=== PATIENT | female | born 1980 | race Caucasian/White ===

== ENCOUNTER 2023-11-15 03:43 | Emergency (ER) | payer OTHER, SELFPAY ==
[2023-11-15] VITALS (18 sets, daily range): BP systolic 125–154; BP diastolic 59–103; BMI 27.6
[2023-11-15 04:11] LABS: % Basophils 0.8 % (0-2); % Eosinophils 3.1 % (0-6); % Immature Granulocytes 0.4 % (0-0.5); % Lymphocytes 35.8 % (20.5-51.1); % Monocytes 6.2 % (1.7-9.3); % Neutrophils 53.7 % (42.2-75.2); Absolute Basophils 0.1 10^3/uL (0-0.2); Absolute Eosinophils 0.3 10^3/uL (0-0.7); Absolute Lymphocytes 3.8 10^3/uL (1.2-3.4); Absolute Monocytes 0.7 10^3/uL (0.1-0.6); Absolute Neutrophils 5.7 10^3/uL (1.4-6.5); Hemoglobin 15.4 g/dL (12.0-16.0); Mean Corpuscular Hgb 33.2 pg (27.0-31.0); Mean Corpuscular Volume 94.8 fL (81.0-99.0); Nucleated Red Blood Cells % 0 %; Platelet Count 315 10^3/uL (130-400); Red Blood Cell Count 4.64 10^6/uL (4.20-5.40); Red Cell Dist. Width 11.7 % (11.5-14.5); White Blood Cell Count 10.6 10^3/uL (4.8-10.8)
--- NOTE | 2023-11-15 04:19 | ED.GENMED ---
History of Present Illness
<OLINDA Mcbride - Last Filed: 11/15/23 04:26>
General
Chief Complaint: Heart Rate Problem
Source: patient
Exam Limitations: none
Time Seen by Provider: 11/15/23 04:07
Nursing documentation reviewed up to this point in time: agreed with
Travel History
Have you had any contact with someone who has COVID-19?: No
Do you have any symptoms of coronavirus? Fever > 100 degrees, chills, cough, shortness of breath, sore throat, loss of taste or smell, muscle aches, or headache?: No
History of Present Illness
History of Present Illness:
patient is a 43 y/o female with PMH of HTN and anxiety presenting for irregular HR since 9pm. Patient admits that it started about 3o minutes after taking her amlodipine. Patient admits that it will wax and wane episodically. Patient admits that
nothing brings on worse episodes. Patient admits to palpitations. Patient denies any previous episodes. Patient denies SOB, CP, VÁZQUEZ, calf pain, dizziness, wheezing. Patient admits to smoking a pack a day and in taking alcohol last night. Patient
states her amlodipine is a new medication and has only taken 4 doses of it.
Past History
<OLINDA Mcbride - Last Filed: 11/15/23 04:26>
Past History
ED Past Medical History: Asthma and Other (Hemorrhoids)
ED Past Surgical History: None and Other (Oral Surgery)
Social History
Tobacco: Smoker
Alcohol: Occasional
Drug: None
Personal:
Living: with family
Employment: Employed
Family History
Family History: Hypertension and Other (Noncontributory)
Review of Systems
<OLINDA Mcbride - Last Filed: 11/15/23 04:26>
Review of Systems
All Other Systems: Not applicable
Constitutional: Reports no symptoms
EENT: Reports no symptoms
Respiratory: Reports no symptoms
Cardiac: Reports palpitations and other (abnormal HR )
ABD/GI: Reports no symptoms
: Reports no symptoms
Musculoskeletal: Reports no symptoms
Skin: Reports no symptoms
Neurological: Reports no symptoms
Endocrine: Reports no symptoms
Hematologic/Lymphatic: Reports no symptoms
Psychiatric: Reports no symptoms
Phy Exam
<OLINDA Mcbride - Last Filed: 11/15/23 04:26>
General Physical Exam
General Presentation: mild distress
General Skin: warm and dry
General Habitus: normal
General Mental: anxious
General Hydration: appears well hydrated
ENT Exam
ENT Exam: EOMI, pharynx normal, neck supple and normocephalic
Eye Exam
Eye Exam: PERRL, cornea clear and conjunctiva normal
Cardiovascular Exam
Cardiovascular Exam: irregularly irregular and tachycardia
Pulmonary Exam
Pulmonary Exam: lungs clear, no respiratory distress, no rales, no crackles, no rhonchi, no stridor, no wheezing and no cough
Gastrointestinal Exam
Gastrointestinal Exam: normal bowel sounds, non tender, soft, no organomegaly, no pulsatile mass and non distended
Neurological Exam
Neurological Exam: alert, oriented x3, no motor deficits and speech normal
Musculoskeletal Exam
Musculoskeletal Exam: full ROM and no edema
Skin Exam
Skin Exam: normal color, warm/dry, no rash and no petechia
Psychiatric Exam
Psychiatric Exam: normal mood/affect
Course
<OLINDA Mcbride - Last Filed: 11/15/23 04:26>
Orders/Labs/Results
Orders:
Orders
11/15/23 03:44
Electrocardiogram (*1) Urgent
Reason for Study: Atrial Fibrillation
EKG- Treatment ONCE
11/15/23 04:06
Complete Blood Count/With Diff Urgent
Comprehensive Metabolic Panel Urgent
TSH Reflex To Free T4 Urgent
Comment: ADD ON
Troponin I Urgent
11/15/23 04:27
Diltiazem HCl [Cardizem] 20 mg IV NOW STA
11/15/23 05:00
Diltiazem 125 mg/125 ml Nss [Cardizem] 125 mg in 125 ml IV PER PROTOCOL
Initial dose in mg/hr, then titrate:: 5
Titrate to keep:: Heart rate 80-100 bpm
Titrate by mg/hr:: 5 mg/hr
Frequency of titrations (minutes):: 15
Maximum dose in mg/hr:: 15
11/15/23 06:06
Add On- LAB Urgent
Tests Added?: TSH reflex to T4
Abnormal Lab Results
11/15/23
04:06
MCH 33.2 H pg
(27.0-31.0)
Absolute Lymphs (auto) 3.8 H 10^3/uL
(1.2-3.4)
Absolute Monos (auto) 0.7 H 10^3/uL
(0.1-0.6)
11/15/23 04:06
11/15/23 04:06
Vital Signs
Initial and Last Documented VS:
Initial Vital Signs
Temp Pulse Resp BP Pulse Ox
98.1 F 126 20 128/88 100
11/15/23 03:51 11/15/23 03:51 11/15/23 03:51 11/15/23 03:51 11/15/23 03:51
Last Documented Vital Signs
Temp Pulse Resp BP Pulse Ox
98.1 F 130 20 154/91 100
11/15/23 03:51 11/15/23 04:37 11/15/23 03:51 11/15/23 04:37 11/15/23 03:51
<Candido Cullen, DO - Last Filed: 11/15/23 06:12>
Orders/Labs/Results
Orders:
Orders
11/15/23 03:44
Electrocardiogram (*1) Urgent
Reason for Study: Atrial Fibrillation
EKG- Treatment ONCE
11/15/23 04:06
Complete Blood Count/With Diff Urgent
Comprehensive Metabolic Panel Urgent
TSH Reflex To Free T4 Urgent
Comment: ADD ON
Troponin I Urgent
11/15/23 04:27
Diltiazem HCl [Cardizem] 20 mg IV NOW STA
11/15/23 05:00
Diltiazem 125 mg/125 ml Nss [Cardizem] 125 mg in 125 ml IV PER PROTOCOL
Initial dose in mg/hr, then titrate:: 5
Titrate to keep:: Heart rate 80-100 bpm
Titrate by mg/hr:: 5 mg/hr
Frequency of titrations (minutes):: 15
Maximum dose in mg/hr:: 15
11/15/23 06:06
Add On- LAB Urgent
Tests Added?: TSH reflex to T4
Abnormal Lab Results
11/15/23
04:06
MCH 33.2 H pg
(27.0-31.0)
Absolute Lymphs (auto) 3.8 H 10^3/uL
(1.2-3.4)
Absolute Monos (auto) 0.7 H 10^3/uL
(0.1-0.6)
11/15/23 04:06
11/15/23 04:06
Vital Signs
Initial and Last Documented VS:
Initial Vital Signs
Temp Pulse Resp BP Pulse Ox
98.1 F 126 20 128/88 100
11/15/23 03:51 11/15/23 03:51 11/15/23 03:51 11/15/23 03:51 11/15/23 03:51
Last Documented Vital Signs
Temp Pulse Resp BP Pulse Ox
98.1 F 130 20 154/91 100
11/15/23 03:51 11/15/23 04:37 11/15/23 03:51 11/15/23 04:37 11/15/23 03:51
<OLINDA Mcbride - Last Filed: 11/15/23 04:26>
MDM/Problems Addressed
Differential Diagnosis Includes:
atrial fibrillation
MT
anxiety attack
dysrhythmia
MDM/Problems Addressed:
irregular HR
<OLNIDA Mcbride - Last Filed: 11/15/23 04:26>
*Critical Care Note
Total Time (30-74mins, 75-104mins- exclusive of procedures): Not Applicable
ED Attending Note
<OLINDA Mcbride - Last Filed: 11/15/23 04:26>
-
Portions of this chart may have been created with voice recognition software.� Occasional wrong word or��sound alike� substitutions may have occurred due to the inherent limitations of voice recognition software.
<Candido Cullen DO - Last Filed: 11/15/23 06:12>
ED Attending Note
Patient seen and examined by attending physician: Yes
I performed the substantive portion of visit, reviewed & personally made and approve the management plan that is documented in note by myself or NOVA.: Yes
ED Attending Note:
43-year-old female who presents with irregular heartbeat that began around 9 PM. She states that she has been unable to sleep with her palpitations. She does not have a history of atrial fibrillation. 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
a nonprofit and has been under a lot of stress lately. She does consume coffee. Denies any drinks or other stimulants. She is a smoker, about a pack per day for several years. Denies any other cardiac history. Patient was recently started on
Norvasc. Patient was seen in conjunction with the PA student. I have reviewed and agree with the history and treatment plan presented. On my independent physical exam, patient is awake, alert, and oriented x3, minimal acute distress. Heart is
irregularly irregular. Abdomen soft and nontender. Patient is in no respiratory distress.
Discharge Plan
Departure
Prescriptions:
No Action
escitalopram oxalate 10 MG tablet
10 mg PO DAILY
bupropion HCl 150 MG tablet extended release 24 hr
150 mg PO DAILY
meclizine 25 MG tablet
25 mg PO Q8HPRN PRN (Reason: dizzy) Qty: 15 0RF
Referrals:
Amita Maguire, DO [Family Provider] -
Interventions
Interventions:
*Risk Screen - Suicide Last Done: 11/15/23 03:51
*Neglect/Abuse Screening Last Done: 11/15/23 03:51
[2023-11-15 04:31] LABS: ALT (SGPT) 20 U/L (0-35); AST (SGOT) 33 U/L (14-36); Albumin 4.5 g/dl (3.5-5.0); Alkaline Phosphatase 90 U/L (38-126); Blood Urea Nitrogen 10 mg/dl (7-17); Calcium 9.3 mg/dl (8.4-10.2); Carbon Dioxide 23 mmol/L (22-30); Chloride 106 mmol/L (98-107); Glucose 95 mg/dl (70-99); Potassium 3.9 mmol/L (3.5-5.1); Sodium 137 mmol/L (135-145); Total Bilirubin 0.6 mg/dl (0.2-1.3); Total Protein 7.3 g/dl (6.3-8.2); eGFR > 60.00
[2023-11-15] MEDS: CARDIZEM 20 MG IV (04:37)
[2023-11-15 04:41] LABS: Troponin I < 0.012 ng/ml
[2023-11-15] MEDS: CARDIZEM 125 IV (04:59)
--- NOTE | 2023-11-15 06:40 | ED.GENMED ---
History of Present Illness
General
Chief Complaint: Heart Rate Problem
Time Seen by Provider: 11/15/23 04:07
Travel History
Have you had any contact with someone who has COVID-19?: No
Do you have any symptoms of coronavirus? Fever > 100 degrees, chills, cough, shortness of breath, sore throat, loss of taste or smell, muscle aches, or headache?: No
History of Present Illness
History of Present Illness:
see previous note
Past History
Past History
ED Past Medical History: Asthma and Other (Hemorrhoids)
ED Past Surgical History: None and Other (Oral Surgery)
Social History
Tobacco: Smoker
Alcohol: Occasional
Drug: None
Personal:
Living: with family
Employment: Employed
Family History
Family History: Hypertension and Other (Noncontributory)
Phy Exam
Physical Exam
Physical Exam:
see previous note
Scores
[id number] Score for Afib Stroke Risk
Age in Years (65=0, 65-74=1, >/=75=2): <65
Sex (Female=+1): Female
Congestive Heart Failure History (Yes=+1): No
Hypertension History (Yes=+1): No
Stroke/TIA/Thromboembolism History (Yes=+2): No
Vascular Disease History (Yes=+1): No
Diabetes Mellitus (Yes=+1): No
Score: 1
Anticoagulation Recommendations: Consider anticoagulation (as validated in nonvalvular fib)
Course
Orders/Labs/Results
Orders:
Orders
11/15/23 03:44
Electrocardiogram (*1) Urgent
Reason for Study: Atrial Fibrillation
EKG- Treatment ONCE
11/15/23 04:06
Complete Blood Count/With Diff Urgent
Comprehensive Metabolic Panel Urgent
TSH Reflex To Free T4 Urgent
Comment: ADD ON
Troponin I Urgent
11/15/23 04:27
Diltiazem HCl [Cardizem] 20 mg IV NOW STA
11/15/23 05:00
Diltiazem 125 mg/125 ml Nss [Cardizem] 125 mg in 125 ml IV PER PROTOCOL
Initial dose in mg/hr, then titrate:: 5
Titrate to keep:: Heart rate 80-100 bpm
Titrate by mg/hr:: 5 mg/hr
Frequency of titrations (minutes):: 15
Maximum dose in mg/hr:: 15
11/15/23 06:06
Add On- LAB Urgent
Tests Added?: TSH reflex to T4
11/15/23 07:03
Rivaroxaban [Xarelto] 20 mg PO NOW STA
11/15/23 07:22
Diltiazem Extended Release [Cardizem Cd] 120 mg PO NOW STA
Abnormal Lab Results
11/15/23
04:06
MCH 33.2 H pg
(27.0-31.0)
Absolute Lymphs (auto) 3.8 H 10^3/uL
(1.2-3.4)
Absolute Monos (auto) 0.7 H 10^3/uL
(0.1-0.6)
11/15/23 04:06
11/15/23 04:06
Vital Signs
Initial and Last Documented VS:
Initial Vital Signs
Temp Pulse Resp BP Pulse Ox
98.1 F 126 20 128/88 100
11/15/23 03:51 11/15/23 03:51 11/15/23 03:51 11/15/23 03:51 11/15/23 03:51
Last Documented Vital Signs
Temp Pulse Resp BP Pulse Ox
98.1 F 127 20 138/96 93
11/15/23 03:51 11/15/23 08:20 11/15/23 08:15 11/15/23 08:15 11/15/23 08:15
*Critical Care Note
Total Time (30-74mins, 75-104mins- exclusive of procedures): Not Applicable
ED Attending Note
-
Portions of this chart may have been created with voice recognition software.� Occasional wrong word or��sound alike� substitutions may have occurred due to the inherent limitations of voice recognition software.
Discharge Plan
Departure
Patient Disposition: Home (Routine Discharge)
Date of Disposition: 11/15/23
Time of Disposition: 07:23
Patient with high blood pressure during this ER visit?: Yes
Discharge Problem:
Atrial fibrillation
Instructions: Atrial Fibrillation (DC), Palpitations (DC), BLOOD PRESSURE
Prescriptions:
New
Xarelto 20 mg tablet
20 mg PO QPM Qty: 15 0RF
diltiazem HCl [Cardizem CD] 120 mg capsule,extended release 24hr
120 mg PO DAILY Qty: 20 0RF
No Action
escitalopram oxalate 10 MG tablet
10 mg PO DAILY
bupropion HCl 150 MG tablet extended release 24 hr
150 mg PO DAILY
meclizine 25 MG tablet
25 mg PO Q8HPRN PRN (Reason: dizzy) Qty: 15 0RF
Referrals:
[facility] [Provider Group]
Amita Maguire DO [Family Provider] -
Salvador Orozco MD [Active] - Keep scheduled appt (Someone from the office will call you to set up an appointment)
Activity Restrictions/Additional Instructions:
Your prescriptions were sent to the pharmacy. Someone from [facility] will call you to set up an appointment for this week. If you do not hear from them today please give the office a call
It was a pleasure meeting you and taking part in your care. We hope for your continued healing and wellness.
Please read discharge instructions in their entirety. However, they are for general education and may not describe your exact diagnosis at discharge. Information on your ER visit and medical conditions were discussed with you along with appropriate
follow up information...
If indicated, please take your medications as instructed and indicated on discharge paperwork.
Please schedule a follow up appointment as directed. Call to schedule an appointment
Please return to the emergency department with ANY change in, persisting, or worsening of symptoms. If any of your symptoms do not improve, or persist, or become more severe within 6-12 hours, please return to the emergency department for further
care.
Please return to the emergency department if you develop a headache, neck pain/stiffness, fever greater than 100.4F, chest pain, shortness of breath, persistent nausea, vomiting, slurred speech, difficulty walking, numbness/tingling, weakness, signs
of infection or any other symptoms that are worrisome to you.
If you have any questions or concerns please do not hesitate to call the Hospital at or E-mail me directly at [email or web address]
Interventions
Interventions:
*Risk Screen - Suicide Last Done: 11/15/23 03:51
*General Assessment Last Done: 11/15/23 06:36
*Neglect/Abuse Screening Last Done: 11/15/23 03:51
ED- Fall Risk Assessment Last Done: 11/15/23 08:37
*ED COVID-19 Vaccine History Last Done: 11/15/23 08:37
*Nursing Disposition Last Done: 11/15/23 08:37
ED- Cardiac Assessment Last Done: 11/15/23 04:00
ED- Pulmonary Assessment Last Done: 11/15/23 04:00
Discharge Date and Time
Discharge Date/Time: 11/15/23 08:40
[2023-11-15] MEDS: XARELTO 20 MG PO (07:27)
[2023-11-15 07:45] LABS: TSH Reflex To Free T4 3.45 uIU/ml (0.47-4.68)
[2023-11-15] MEDS: CARDIZEM CD 120 MG PO (08:20)
== END 2023-11-15 08:40 | disposition home or self-care (01) ==
LOC: EMR 03:43
PROVIDERS: EMERGENCY PHYSICIAN Student in an Organized Health Care Education/Training Program; FAMILY PHYSICIAN Family Medicine
DX: I48.91 Unspecified atrial fibrillation (principal); F17.210 Nicotine dependence, cigarettes, uncomplicated; I10 Essential (primary) hypertension
CPT/HCPCS: 99284; 96374; 96376; 80053; 84443; 84484; 85025; 93005

== ENCOUNTER → 2023-11-18 11:15 | Outpatient (REF) | payer OTHER, SELFPAY | LOC: DHCBS MAIN 11:15 | PROVIDERS: ATTENDING PHYSICIAN Internal Medicine Cardiovascular Disease; FAMILY PHYSICIAN Nurse Practitioner Family | DX: I48.91 Unspecified atrial fibrillation (principal) | CPT/HCPCS: 93306 ==

== ENCOUNTER 2024-03-23 07:33 | Emergency (ER) | payer OTHER, SELFPAY ==
[2024-03-23 07:35] VITALS: BP 185/109
[2024-03-23 07:42] VITALS: BP 160/90
--- NOTE | 2024-03-23 07:58 | ED.GENMED ---
History of Present Illness
General
Chief Complaint: Heart Rate Problem
Source: patient
Time Seen by Provider: 03/23/24 07:50
History of Present Illness
History of Present Illness:
43-year-old female with past medical history of paroxysmal atrial fibrillation, asthma, anxiety/depression presenting to the emergency department for evaluation of palpitations that began around 10 PM last night, continued this morning, symptoms
felt similar to previous episode of atrial fibrillation prompting her to come to the ER for further evaluation. Patient notes that symptoms seem to be improved presently and is not experiencing the palpitations here. Patient has no other symptoms
including chest pain, shortness of breath, diaphoresis, exertional dyspnea, orthopnea, abdominal pain, nausea, vomiting, bowel changes or urinary symptoms. Patient is also denying any fevers or infectious symptoms. Patient does note that she
Cardizem 120 mg p.o. daily at nighttime and had discussed increasing this dosage with primary care however due to heart rate intermittently being around 60 this was ultimately decided to not increase the medication. Patient also notes significant
social stressors which could be a potential cause for her palpitations as well.
Past History
Past History
ED Past Medical History: Arrthythmia, Asthma and Other (Hemorrhoids)
ED Past Surgical History:
Social History
Tobacco: Smoker
Alcohol: Occasional
Drug: None
Personal:
Living: with family
Employment: Employed
Family History
Family History: Hypertension and Other (Noncontributory)
Review of Systems
Review of Systems
All Other Systems: ROS reviewed and negative except as documented in HPI and ROS
Phy Exam
Physical Exam
Physical Exam:
GENERAL: Alert , in no apparent distress
Head: Normocephalic atraumatic
EYE: conjunctiva clear
NECK: Supple
ENT: o/p clr, mmm.
CARDIAC: Regular rate and rhythm but tachycardic rhythm between 108 and 118 bpm
LUNGS: Clear breath sounds bilaterally, no acute respiratory distress, no wheezes/rales/rhonchi
NEUROLOGICAL: Alert and oriented
SKIN: Warm and dry, skin intact.
MUSCULOSKELETAL: well perfused.
PSYCH: Normal and appropriate interaction.
Scores
Heart Failure Risk
Heart Failure Risk Score: Not Applicable
Heart Score for Chest Pain Patients
STEMI patient?: Not applicable
Withdrawal Assessment of Alcohol
Withdrawal Assessment Completed?: Not applicable
Course
Orders/Labs/Results
Orders:
Orders
03/23/24 07:38
EKG [Electrocardiogram (*1)] Urgent
Reason for Study: Tachycardia
EKG- Treatment ONCE
03/23/24 07:57
Diltiazem Extended Release [Cardizem Cd] 120 mg PO NOW STA
03/23/24 08:07
Complete Blood Count/With Diff Urgent
Comprehensive Metabolic Panel Urgent
TSH Urgent
Abnormal Lab Results
03/23/24
08:07
MCH 33.4 H pg
(27.0-31.0)
Glucose 103 H mg/dl
(70-99)
03/23/24 08:07
03/23/24 08:07
Vital Signs
Initial and Last Documented VS:
Initial Vital Signs
Temp Pulse Resp BP Pulse Ox
98.4 F 125 16 185/109 99
03/23/24 07:35 03/23/24 07:35 03/23/24 07:35 03/23/24 07:35 03/23/24 07:35
Last Documented Vital Signs
Temp Pulse Resp BP Pulse Ox
98.4 F 93 19 123/77 94
03/23/24 07:35 03/23/24 09:00 03/23/24 09:00 03/23/24 09:00 03/23/24 09:00
MDM/Problems Addressed
Differential Diagnosis Includes:
Atrial fibrillation or other cardiac dysrhythmia, electrolyte disturbance, thyroid disorder, I do not have concern for atypical ACS or anginal symptoms
MDM/Problems Addressed:
43-year-old female presenting to the emergency department for evaluation of palpitations which started last night around 10 PM and continued this morning, currently resolved. Patient still found to be tachycardic on arrival and on potline monitor
heart rate is between 108 and 118 bpm. She appears to be in a sinus tachycardia. She did take her diltiazem last night. Normally does not take anything in the morning time. Will check labs and treat with a oral dose of her Cardizem 120 mg.
Patient is currently not anticoagulated on any medications and does not follow with computer discovery teacher regularly but has seen [place] [facility] in the past. She is otherwise presently stable and overall well-appearing.
Chronic conditions affecting care: Arrhythmia
*Pulse Oximetry
Patient hypoxic: no
*EKG
Interpreted by ED Provider?: Yes
Heart Rate: 121
Rate: tachycardiac
Rhythm: sinus
[place]: normal axis
Ischemia: no ischemia
*Dressage Judge Interpretation
Rate: tachycardiac
Rhythm: sinus
*Critical Care Note
Total Time (30-74mins, 75-104mins- exclusive of procedures): Not Applicable
Data Reviewed
Review of Other/Old Records Reveals: Records
Source: patient and records
Patient Management
Escalation/DeEscalation of care consider admission/obs:
Patient's heart rate improved following oral medication. She remains feeling well. She feels comfortable with discharge home. I will notify the cardiology team she has seen in the past and expedite her follow-up via chest pain hotline. Patient
aware of return precautions but otherwise stable for discharge home. You can
ED Attending Note
-
Portions of this chart may have been created with voice recognition software.� Occasional wrong word or��sound alike� substitutions may have occurred due to the inherent limitations of voice recognition software.
Discharge Plan
Departure
Patient Disposition: Home (Routine Discharge)
Date of Disposition: 07/25/24
Time of Disposition: 09:08
Patient with high blood pressure during this ER visit?: Yes
Discharge Problem:
Palpitations
Instructions: Palpitations (DC), Chest Pain [facility] Follow Up
Prescriptions:
No Action
escitalopram oxalate 10 MG tablet
10 mg PO DAILY
bupropion HCl 150 MG tablet extended release 24 hr
150 mg PO DAILY
meclizine 25 MG tablet
25 mg PO Q8HPRN PRN (Reason: dizzy) Qty: 15 0RF
Xarelto 20 mg tablet
20 mg PO QPM Qty: 15 0RF
diltiazem HCl [Cardizem CD] 120 mg capsule,extended release 24hr
120 mg PO DAILY Qty: 20 0RF
Referrals:
Amita Maguire, DO [Family Provider] -
Interventions
Interventions:
*Risk Screen - Suicide Last Done: 03/23/24 07:35
*General Assessment Last Done: 03/23/24 07:35
*Neglect/Abuse Screening Last Done: 03/23/24 07:35
*ED COVID-19 Vaccine History Last Done: 03/23/24 07:35
*Nursing Disposition Last Done: 03/23/24 09:27
Discharge Date and Time
Discharge Date/Time: 03/23/24 09:28
Print Language: GERMAN
[2024-03-23 08:00] VITALS: BP 159/94
[2024-03-23 08:14] LABS: % Basophils 0.5 % (0-2); % Eosinophils 2.1 % (0-6); % Immature Granulocytes 0.3 % (0-0.5); % Lymphocytes 21.5 % (20.5-51.1); % Monocytes 5.4 % (1.7-9.3); % Neutrophils 70.2 % (42.2-75.2); Absolute Basophils 0.1 10^3/uL (0-0.2); Absolute Eosinophils 0.2 10^3/uL (0-0.7); Absolute Monocytes 0.5 10^3/uL (0.1-0.6); Absolute Neutrophils 6.4 10^3/uL (1.4-6.5); Hematocrit 40.5 % (37.0-47.0); Hemoglobin 14.2 g/dL (12.0-16.0); Mean Corp Hgb Conc. 35.1 g/dL (33.0-37.0); Mean Corpuscular Hgb 33.4 pg (27.0-31.0); Mean Corpuscular Volume 95.3 fL (81.0-99.0); Mean Platelet Volume 9.6 fL (7.4-10.4); Nucleated Red Blood Cells % 0 %; Platelet Count 294 10^3/uL (130-400); Red Blood Cell Count 4.25 10^6/uL (4.20-5.40); Red Cell Dist. Width 11.8 % (11.5-14.5); White Blood Cell Count 9.1 10^3/uL (4.8-10.8)
[2024-03-23] MEDS: CARDIZEM CD 120 MG PO (08:21)
[2024-03-23 08:38] LABS: ALT (SGPT) 19 U/L (0-35); AST (SGOT) 29 U/L (14-36); Albumin 4.4 g/dl (3.5-5.0); Alkaline Phosphatase 66 U/L (38-126); Blood Urea Nitrogen 10 mg/dl (7-17); Calcium 9.7 mg/dl (8.4-10.2); Carbon Dioxide 25 mmol/L (22-30); Chloride 106 mmol/L (98-107); Glucose 103 mg/dl (70-99); Sodium 139 mmol/L (135-145); Total Bilirubin 0.4 mg/dl (0.2-1.3); Total Protein 6.8 g/dl (6.3-8.2); eGFR > 60.00
[2024-03-23 09:00] VITALS: BP 123/77
[2024-03-23 09:09] LABS: TSH 0.95 uIU/ml (0.47-4.68)
== END 2024-03-23 09:28 | disposition home or self-care (01) ==
LOC: EMR 07:33
PROVIDERS: Physician Assistant Medical; EMERGENCY PHYSICIAN Emergency Medicine; FAMILY PHYSICIAN Family Medicine
DX: R00.2 Palpitations (principal); R03.0 Elevated blood-pressure reading, without diagnosis of hypertension; I48.0 Paroxysmal atrial fibrillation; J45.909 Unspecified asthma, uncomplicated; F41.9 Anxiety disorder, unspecified; F32.A Depression, unspecified; Z65.8 Other specified problems related to psychosocial circumstances; F17.200 Nicotine dependence, unspecified, uncomplicated; Z88.8 Allergy status to other drugs, medicaments and biological substances
CPT/HCPCS: 99283; 80053; 84443; 85025; 93005